=== PATIENT | female | born 1990 | race Caucasian/White ===

== ENCOUNTER 2017-11-09 19:53 | Emergency (ER) | payer OTHER ==
[~2017-11-09] VITALS: Ht 160 cm; Wt 83.9 kg
[2017-11-09 19:56] VITALS: BP 144/83
--- NOTE | 2017-11-09 20:40 | ED GENERAL ADULT ---
History of Present Illness General Chief Complaint: Female Urogenital Problems Stated Complaint: "BLOOD IN URINE" Source: patient Exam Limitations: no limitations Vital Signs & Intake/Output Vital Signs & Intake/Output Vital Signs Date Time Temp Pulse Resp B/P B/P Pulse O2 O2 Flow FiO2 Mean Ox Delivery Rate 11/10 2043 Room Air 11/10 1955 97.6 84 18 144/83 98 Room Air Allergies Coded Allergies: No Known Allergies (11/09/17) Reconcile Medications Cephalexin (Keflex) 500 MG CAPSULE 1 CAP PO BID UTI Phenazopyridine HCl (Pyridium) 100 MG TABLET 1 TAB PO TID UTI Triage Note: PT TO TRIAGE WITH LOWER BACK PAIN, BLOOD IN URINE, URGENCY AND PAIN ON URINATION X2 DAYS. DENIES N/V. Triage Nurses Notes Reviewed? yes Onset: Gradual Duration: day(s): Timing: constant : No Patient currently breastfeeds: No HPI: 27-year-old otherwise healthy female presenting with dysuria, hematuria, and urinary urgency/frequency 2 days. Patient has also had intermittent lower back pain. Denies fevers, nausea, vomiting, abdominal pain, vaginal discharge. No prior history of STDs. Had STD testing 1 month ago and was negative. No new sexual partner since. (Za Ngo) Past History Travel History Traveled to [place] past 21 day No Medical History Any Pertinent Medical History? none Neurological: NONE EENT: NONE Cardiovascular: NONE Respiratory: NONE Gastrointestinal: NONE Hepatic: NONE Renal: NONE Musculoskeletal: NONE Psychiatric: NONE Endocrine: NONE Blood Disorders: NONE Cancer(s): NONE PROGRAMMER OR ANALYST/Reproductive: NONE Surgical History Surgical History: non-contributory Psychosocial History What is your primary language Faroese Tobacco Use: Never used ETOH Use: occasional use Family History Hx Contributory? No (Za Nog) Review of Systems Review of Systems Constitutional: Reports: no symptoms. EENTM: Reports: no symptoms. Respiratory: Reports: no symptoms. Cardiovascular: Reports: no symptoms. GI: Reports: no symptoms. Genitourinary: Reports: see HPI. Musculoskeletal: Reports: no symptoms. Skin: Reports: no symptoms. Neurological/Psychological: Reports: no symptoms. Hematologic/Endocrine: Reports: no symptoms. Immunologic/Allergic: Reports: no symptoms. All Other Systems: Reviewed and Negative (Za Ngo) Physical Exam Physical Exam General Appearance: well developed/nourished, no apparent distress, alert, awake , comfortable Head: atraumatic, normal appearance Eyes: Bilateral: normal appearance. Neck: normal inspection Respiratory: normal breath sounds, lungs clear Cardiovascular: regular rate/rhythm Gastrointestinal: soft, non-tender Back: normal inspection, no CVA tenderness Extremities: normal inspection Neurologic/Psych: awake, alert, oriented x 3, normal gait, normal mood/affect Skin: intact, normal color, warm/dry Core Measures ACS in differential dx? No CVA/TIA Diagnosis: No Sepsis Present: No Sepsis Focused Exam Completed? No (Za Ngo) Progress Differential Diagnoses I considered the following diagnoses in my evaluation of the patient: [UTI, low concern for pyelonephritis versus cervicitis versus PID] Plan of Care: Orders Procedure Date/time Status Add-on Test (ER Only) 11/09 2004 Active CULTURE,URINE 11/09 1957 Active URINE 11/09 1957 Complete URINALYSIS 11/09 1957 Complete Laboratory Tests 11/09/172011: Urinalysis MOD H, Urine Color YEL, Urine Clarity HAZY H, Urine pH 6.0, Ur Specific [place] 1.025, Urine Protein TRACE H, Urine Ketones 40 H, Urine Nitrite NEG, Urine Bilirubin NEG, Urine Urobilinogen 0.2, Ur Leukocyte Esterase SMALL H, Ur Microscopic SEDIMENT EXAMINED, Urine RBC 25-50 H, Urine WBC 15-25 H, Ur Epithelial Cells MOD H, Urine Bacteria MOD H, Urine Hemoglobin LARGE H, Urine Glucose NEG, Urine Test NEGATIVE Microbiology 11/10 2011 URINE ROUT: Urine Culture - RECD UA is concerning for UTI, urine culture sent, will treat with Keflex and Pyridium. Counseled on supportive care and strict return precautions. Initial ED EKG: none (Za Ngo) Departure Departure Disposition: HOME OR SELF CARE Condition: Stable Clinical Impression Primary Impression: UTI (urinary tract infection) Referrals: Caitlin Spring MD (PCP/Family) Additional Instructions: Take keflex and pyridium as prescribed. Follow up with your primary care provider for re-evaluation. Return to the emergency department for any new or worsening symptoms. Departure Forms: Customer Survey General Discharge Information Prescriptions: Current Visit Scripts Cephalexin (Keflex) 1 CAP PO BID #20 CAP Phenazopyridine HCl (Pyridium) 1 TAB PO TID #6 TAB (Za Ngo) PA/BIN CLEANER Co-Sign Statement Statement: ED Attending supervision documentation- I saw and evaluated the patient. I have also reviewed all the pertinent lab results and diagnostic results. I agree with the findings and the plan of care as documented in the PA's/BIN CLEANER's documentation. x I have reviewed the ED Record and agree with the PA's/BIN CLEANER's documentation. [] Additions or exceptions (if any) to the PAs/BIN CLEANER's note and plan are summarized below: [] (Fermin JARVIS,Evangelist) Critical Care Note Critical Care Note Critical Care Time: non-applicable (Za Ngo)
[2017-11-09] MEDS ORDERED: KEFLEX500 M1 PO (20:42)
[2017-11-09] MEDS ORDERED: PYRIDIUM100 M1 PO (20:42)
== END 2017-11-09 20:45 ==
LOC: ERH 19:53
DX: N39.0 Urinary tract infection, site not specified (principal)
CPT/HCPCS: 81001; 81025; 87086